=== PATIENT | male | born 1960 | race Caucasian/White ===

== ENCOUNTER 2017-06-27 09:27 | Observation (INO) | payer BC, OTHER ==
[2017-06-27 09:41] VITALS: BMI 28.6
--- NOTE | 2017-06-27 09:48 | PDOC ---
History of Present Illness - General History Source: Patient, Family Exam Limitations: No Limitations - History of Present Illness Initial Comments: 06/27/17 16:59 The patient is a 56 year old male, with a significant past medical history of hypertension and prostate cancer, clean cardiac cath >10yrs ago by report at [facility] who presents to the ED complaining of two episodes of chest pain that occurred with strenuous lifting approx. 7 days ago and 3 days ago as well as nightly chest pain that has been occurring for months while lying down at night. 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 The patient reports that the second episode of chest pain occurred 3 days ago on when he was doing heavy lifting at the [employer] and lasted for a few minutes before going away. The patient reports associated symptoms of nausea without vomiting secondary to the chest pain. The patient states he is normally short of breath but does not associate the shortness of breath with the chest pain. The patient reports that he has also been experiencing chest pain that occurs while lying down on his side at night for the past couple of months. He denies double or blurry vision. He denies recent swelling or calf tenderness. He denies palpitations or diaphoresis. He denies any recent fevers, chills, headache or dizziness. He denies any recent vomit, diarrhea or constipation. He denies any recent dysuria, frequency, urgency or hematuria. Denies recent travel or immobility. Allergies: NKA Past surgical history: Seed implantation. Social History: Former smoked (1992) Primary Care Physician: Dr. Dae Wolfe <Elder Cotto - Last Filed: 06/27/17 16:59> <Chuck Thomas - Last Filed: 06/27/17 17:18> - General Chief Complaint: Chest Pain Stated Complaint: CHEST PAIN Time Seen by Provider: 06/27/17 09:48 Past History <Elder Cotto - Last Filed: 06/27/17 16:59> - Past Medical History Cancer: Yes (PROSTATE) CVA: No COPD: No HTN: Yes - Immunization History Immunization Up to Date: Yes - Suicide/Smoking/Psychosocial Hx Smoking Status: No Smoking History: Never smoked Have you smoked in the past 12 months: No Number of Cigarettes Smoked Daily: 0 Hx Alcohol Use: No Drug/Substance Use Hx: No Substance Use Type: None <Chuck Thomas - Last Filed: 06/27/17 17:18> - Past Medical History Allergies/Adverse Reactions: Allergies Allergy/AdvReac Type Severity Reaction Status Date / Time No Known Allergies Allergy Verified 06/27/17 09:37 Home Medications: Ambulatory Orders Aspirin [ASA -] 81 mg PO DAILY 07/30/12 Amlodipine Besylate/Benazepril [Lotrel 10-40 mg Capsule] 1 each PO DAILY Hydrochlorothiazide [Hctz -] 25 mg PO DAILY 05/16/13 Benzonatate [Tessalon Pearls -] 200 mg PO QID 06/20/16 Cefixime [Suprax -] 400 mg PO DAILY 06/20/16 Ibuprofen [Motrin -] 600 mg PO QID PRN 06/20/16 Levofloxacin [Levaquin] 500 mg PO DAILY #7 tablet 06/20/16 Review of Systems - Review of Systems Comments:: 06/27/17 16:59 GENERAL/CONSTITUTIONAL: No fever or chills. No weakness. HEAD, EYES, EARS, NOSE AND THROAT: No change in vision. No ear pain or discharge. No sore throat. CARDIOVASCULAR: +Chest pain. No shortness of breath. RESPIRATORY: No cough, wheezing, or hemoptysis. GASTROINTESTINAL: +Nausea. No vomiting, diarrhea or constipation. GENITOURINARY: No dysuria, frequency, or change in urination. MUSCULOSKELETAL: No joint or muscle swelling or pain. No neck or back pain. SKIN: No rash NEUROLOGIC: No headache, vertigo, loss of consciousness, or change in strength/ sensation. ENDOCRINE: No increased thirst. No abnormal weight change. HEMATOLOGIC/LYMPHATIC: No anemia, easy bleeding, or history of blood clots. ALLERGIC/IMMUNOLOGIC: No hives or skin allergy. <Elder Cotto - Last Filed: 06/27/17 16:59> *Physical Exam - Vital Signs Last Vital Signs Temp Pulse Resp BP Pulse Ox 98.1 F 74 16 142/95 98 06/27/17 09:37 06/27/17 09:37 06/27/17 09:37 06/27/17 09:37 06/27/17 09:48 - Physical Exam Comments: 06/27/17 17:00 GENERAL: Awake, alert, and fully oriented, in no acute distress HEAD: No signs of trauma EYES: PERRLA, EOMI, sclera anicteric, conjunctiva clear ENT: Auricles normal inspection, hearing grossly normal, nares patent, oropharynx clear without exudates. Moist mucosa NECK: Normal ROM, supple, no lymphadenopathy, JVD, or masses LUNGS: Breath sounds equal, clear to auscultation bilaterally. No wheezes, and no crackles HEART: Regular rate and rhythm, normal S1 and S2, no murmurs, rubs or gallops ABDOMEN: Soft, nontender, normoactive bowel sounds. No guarding, no rebound. No masses EXTREMITIES: Normal range of motion, no edema. No clubbing or cyanosis. No cords, erythema, or tenderness NEUROLOGICAL: Normal speech, cranial nerves intact, negative pronator drift, 5/ 5 strength in all 4 extremities, normal sensation to light touch in all 4 extremities, normal cerebellar exam, normal gait, normal reflexes and tone SKIN: Warm, Dry, normal turgor, no rashes or lesions noted. <Elder Cotto - Last Filed: 06/27/17 16:59> - Vital Signs Last Vital Signs Temp Pulse Resp BP Pulse Ox 98.1 F 74 16 142/95 98 06/27/17 09:37 06/27/17 09:37 06/27/17 09:37 06/27/17 09:37 06/27/17 09:37 <Chuck Thomas - Last Filed: 06/27/17 17:18> Heart Score/ECG Review #1 06/27/17 17:18 EKG read and interpreted by me: NSR, rate 71, normal axis and intervals, no QUYEN , isolated TWI in lead III <Chuck Thomas - Last Filed: 06/27/17 17:18> ED Treatment Course - LABORATORY CBC & Chemistry Diagram: 06/27/17 10:37 06/27/17 10:37 - ADDITIONAL ORDERS Additional order review: Laboratory Results 06/27/17 06/27/17 10:37 10:37 PT with INR 12.00 H INR 1.06 Sodium 138 Potassium 4.7 Chloride 103 Carbon Dioxide 29 Anion Gap 6 L BUN 17 Creatinine 1.2 Creat Clearance w eGFR > 60 Random Glucose 123 H D Calcium 9.0 Total Bilirubin 0.9 D AST 18 ALT 36 Alkaline Phosphatase 77 D Creatine Kinase 166 Creatine Kinase Index 0.6 CK-MB (CK-2) < 1.000 Troponin I < 0.02 Total Protein 7.6 Albumin 4.0 06/27/17 10:37 RBC 5.05 MCV 89.8 MCHC 33.7 RDW 13.5 MPV 8.6 D Neutrophils % 65.6 Lymphocytes % 20.8 D Monocytes % 9.9 Eosinophils % 3.0 Basophils % 0.7 - RADIOLOGY Radiograph Interpretation: 06/27/17 12:49 EXAM#: TYPE/EXAM: RESULT: [id number] RAD/CHEST X-RAY PORTABLE* AP portable chest: Shortness of breath An apical lordotic view reveals a slight rotation to the right, degenerative changes, clear lungs, prominent mediastinum and sharp angles. An acute process is not seen. Since , there is no change of an adverse nature. Impression: No acute pathology. If symptoms persist, further imaging with CT may be of help. Reported By: Marcelino Palmer MD 06/27/17 15:40 EXAM#: TYPE/EXAM: RESULT: [id number] CT/ABDOMEN CTA W/WO CONTRAST [id number] CT/CHEST CTA HISTORY PROVIDED: Rule out dissection. TECHNIQUE: Sequential axial images were obtained from the thoracic inlet through the domes of the diaphragm both prior to and following the administration of intravenous contrast material. CTA protocol of the aorta was utilized, including coronal and sagittal MIP images. The thoracic and abdominal aorta are normal in position and caliber with no evidence of aneurysmal dilatation or dissection. The lung rincon are free of pulmonary masses, areas of acute consolidation or pleural effusions. No mediastinal masses, fluid collections or lymphadenopathy are identified. The heart is not enlarged. The liver is normal in size. It is hypodense in texture consistent with diffuse fatty infiltration. No mass lesions are identified within the liver. The spleen, pancreas, adrenal glands and kidneys demonstrate no significant abnormalities. There is a large left renal cyst measuring 6.2 x 4.7 cm. The gallbladder is largely contracted without evidence of calculi. There is no evidence of intra-abdominal or retroperitoneal lymphadenopathy or fluid collections. There is no evidence of acute bony pathology. IMPRESSION: 1. No evidence of thoracic or abdominal aortic aneurysm or dissection. 2. No acute pathology within the chest. 2. Diffuse fatty infiltration of the liver, no acute pathology within the abdomen. Please see above discussion. Reported By: Sergio Akers MD <Elder Cotto - Last Filed: 06/27/17 16:59> - LABORATORY CBC & Chemistry Diagram: 06/27/17 10:37 06/27/17 10:37 <Chuck Thomas - Last Filed: 06/27/17 17:18> Medical Decision Making - Medical Decision Making 06/27/17 14:[address] Dae Wolfe at 1:[address] pm. Answering service advised Dr. Singh is the covering physician and will return the page. Awaiting call back. Second page sent to Dr. Singh at 1:[address] Singh returned the second page at 2:03 pm. <Elder Cotto - Last Filed: 06/27/17 16:59> *DC/Admit/Observation/Transfer - Attestations Scribe Attestion: 06/27/17 14:37 Documentation prepared by Elder Cotto, acting as ophthalmic medical technologist for Chuck Thomas MD. <Elder Cotto - Last Filed: 06/27/17 16:59> - Discharge Dispostion Admit: Yes - Attestations Physician Attestion: 06/27/17 14:06 I, Dr. Chuck Thomas MD, attest that this document has been prepared under my direction and personally reviewed by me in its entirety. I further attest, that it accurately reflects all work, treatment, procedures and medical decision -making performed by me. <Chuck Thomas - Last Filed: 06/27/17 17:18> Diagnosis at time of Disposition: Chest pain - Discharge Dispostion Condition at time of disposition: Stable
[2017-06-27 10:46] LABS: BASOPHIL 0.7 % (0-2.0); MCH 30.2 pg (25.7-33.7); MCHC 33.7 g/dl (32.0-35.9); MEAN CELL VOLUME 89.8 fl (80-96); MEAN PLT VOLUME 8.6 fl (7.5-11.1); NEUTROPHILS 65.6 % (42.8-82.8); PLATELET COUNT 175 K/MM3 (134-434); RDW 13.5 % (11.9-15.9); WHITE BLOOD COUNT 6.6 K/mm3 (4.0-10.0)
[2017-06-27 10:58] LABS: INR 1.06 (0.82-1.09)
[2017-06-27 11:31] LABS: ALK PHOS 77 U/L (45-117); ANION GAP 6 (8-16); BILIRUBIN,TOTAL 0.9 mg/dL (0.2-1.0); CO2 29 mmol/L (21-32); CREATININE 1.2 mg/dL (0.7-1.3); GLUCOSE,RANDOM 123 mg/dL (74-106); SGOT/AST 18 U/L (15-37); SGPT/ALT 36 U/L (12-78); TOT PROT 7.6 g/dl (6.4-8.2)
[2017-06-27 11:33] LABS: CPK 166 IU/L (39-308); TROPONIN I < 0.02 ng/ml (0.00-0.05)
[2017-06-27] MEDS ORDERED: ACETAMINOPHEN 325 MG TABLET (FP) PO PRN (18:49)
[2017-06-27] MEDS ORDERED: ATORVASTATIN CA 40 MG TABLET (FP) PO SCH (22:00)
[2017-06-27] MEDS ORDERED: ATORVASTATIN CA 40 MG TABLET (FP) ONE (22:17)
[2017-06-27] MEDS ORDERED: HEPARIN NA (PORCINE) 5,000 UNITS/ML 1ML VIAL ONE (22:18)
[2017-06-27] MEDS: HEPARIN NA (PORCINE) 5,000 UNITS/ML 1ML VIAL SQ SCH (22:31)
[2017-06-27 23:27] LABS: CPK 137 IU/L (39-308); TROPONIN I < 0.02 ng/ml (0.00-0.05)
[2017-06-28 06:48] LABS: BASOPHIL 0.4 % (0-2.0); EOSINOPHIL 3.2 % (0-4.5); MCH 30.3 pg (25.7-33.7); MCHC 34.1 g/dl (32.0-35.9); MEAN PLT VOLUME 8.2 fl (7.5-11.1); NEUTROPHILS 66.5 % (42.8-82.8); PLATELET COUNT 164 K/MM3 (134-434); RDW 13.4 % (11.9-15.9); WHITE BLOOD COUNT 6.7 K/mm3 (4.0-10.0)
[2017-06-28 07:11] LABS: ALBUMIN 3.5 g/dl (3.4-5.0); ANION GAP 6 (8-16); CALCIUM 8.1 mg/dL (8.5-10.1); CHOLESTEROL 204 mg/dL (50-200); CO2 31 mmol/L (21-32); GLUCOSE,RANDOM 142 mg/dL (74-106); SGOT/AST 15 U/L (15-37)
[2017-06-28 07:14] LABS: ALK PHOS 69 U/L (45-117); CPK 123 IU/L (39-308); CREATININE 1.2 mg/dL (0.7-1.3); SGPT/ALT 29 U/L (12-78); TOT PROT 6.5 g/dl (6.4-8.2); TROPONIN I < 0.02 ng/ml (0.00-0.05)
[2017-06-28] MEDS: HEPARIN NA (PORCINE) 5,000 UNITS/ML 1ML VIAL SQ SCH (09:08)
[2017-06-28] MEDS ORDERED: LISINOPRIL 20 MG TABLET (FP) PO SCH (10:00)
[2017-06-28] MEDS ORDERED: ASPIRIN 81 MG CHEWABLE TABLETS PO SCH (10:00)
[2017-06-28] MEDS ORDERED: HYDROCHLOROTHIAZIDE 25 MG TABLET (FP) PO SCH (10:00)
[2017-06-28] MEDS ORDERED: amLODIPine BESYLATE 10 MG TABLET (FP) PO SCH (10:00)
--- NOTE | 2017-06-28 14:19 | EKG ---
Test Reason : Blood Pressure : / mmHG Vent. Rate : 071 BPM Atrial Rate : 071 BPM P-R Int : 152 ms QRS Dur : 102 ms QT Int : 370 ms P-R-T Axes : 057 -10 011 degrees QTc Int : 402 ms NORMAL SINUS RHYTHM NORMAL ECG WHEN COMPARED WITH ECG OF 20-JUN-2016 10:00, LIKELY NO SIGNIFICANT CHANGES Confirmed by PATRIA LEYVA MD ([id number]) on 06/28/2017 2:18:40 PM Referred By: Confirmed By:PATRIA LEYVA MD
[2017-06-28 14:54] VITALS: BP 134/77; PULSE 76; TEMP 98.2
--- NOTE | 2017-06-28 15:21 | CON.CARD ---
Consult Consult Specialty:: Cardiology Referred by:: Dr Wolfe Reason for Consultation:: chest pain - History of Present Illness Chief Complaint: chest pain History of Present Illness: 56 year old man history of HTN chol prostate CA s/p seed implant, ex smoker, cp in past with normal cors cath at [facility] 10 years ago, admitted with chest pain brief and nonexertional pinching x 2 episodes 3 days ago. No associated sob, palps, orthopnea, pnd or edema. Exercise tolerance is good. - History Source History Provided By: Patient - Alcohol/Substance Use Hx Alcohol Use: No - Smoking History Smoking history: Never smoked Have you smoked in the past 12 months: No Aproximately how many cigarettes per day: 0 Home Medications - Allergies Allergies/Adverse Reactions: Allergies Allergy/AdvReac Type Severity Reaction Status Date / Time No Known Allergies Allergy Verified 06/27/17 09:37 - Home Medications Home Medications: Ambulatory Orders Aspirin [ASA -] 81 mg PO DAILY 07/30/12 Amlodipine Besylate/Benazepril [Lotrel 10-40 mg Capsule] 1 each PO DAILY Hydrochlorothiazide [Hctz -] 25 mg PO DAILY 05/16/13 Family Disease History - Family Disease History Family History: Denies Review of Systems - Review of Systems Constitutional: reports: No Symptoms Eyes: reports: No Symptoms HENT: reports: No Symptoms Neck: reports: No Symptoms Respiratory: reports: No Symptoms Gastrointestinal: reports: No Symptoms Vital Signs: Vital Signs Temperature 98.2 F 06/28/17 14:54 Pulse Rate 76 06/28/17 14:54 Respiratory Rate 18 06/28/17 14:54 Blood Pressure 134/77 06/28/17 14:54 O2 Sat by Pulse Oximetry (%) 100 06/28/17 14:54 Constitutional: Yes: Well Nourished, No Distress Eyes: Yes: Conjunctiva Clear, EOM Intact HENT: Yes: Atraumatic, Normocephalic Neck: Yes: Supple, Trachea Midline Respiratory: Yes: CTA Bilaterally Gastrointestinal: Yes: Normal Bowel Sounds, Soft Cardiovascular: Yes: WNL, Regular Rate and Rhythm JVD: No Carotid Bruit: No PMI: Non-Displaced Heart Sounds: Yes: S1, S2 Edema: No Peripheral Pulses WNL: Yes - Other Data Labs, Other Data: CBC, BMP 06/28/17 06:00 06/28/17 06:00 INR, PTT INR 1.06 (0.82-1.09) 06/27/17 10:37 Troponin, BNP 06/27/17 06/28/17 22:40 06:00 Troponin I < 0.02 < 0.02 Troponin, BNP 06/27/17 06/28/17 22:40 06:00 Troponin I < 0.02 < 0.02 Imaging - Results Chest X-ray: Report Reviewed (vijaya) EKG: Report Reviewed (normal ecg) Other: Other (normal nuclear stress test. EF 58%) Problem List - Problems (1) Chest pain Assessment/Plan: His chest pain is atypical for angina. Normal echo and stress test, no evidence of ACS. normal ECG. stable to pr home. fu with primary MD. Code(s): R07.9 - CHEST PAIN, UNSPECIFIED Qualifiers: Chest pain type: intercostal pain Qualified Code(s): R07.82 - Intercostal pain
== END 2017-06-28 15:25 | disposition home or self-care (01) ==
LOC: JER 09:27 → JERBED 14:07
PROVIDERS: ADMIT Family Medicine; ATTEND Family Medicine
PROC: 3E013GC Introduction of Other Therapeutic Substance into Subcutaneous Tissue, Percutaneous Approach (ICD-10-PCS; principal; 2017-06-27)
DX: R07.82 Intercostal pain (principal); I10 Essential (primary) hypertension; Z85.46 Personal history of malignant neoplasm of prostate
CPT/HCPCS: 36415; 71010-TC; 71275-TC; 74175-TC; 78452-TC; 80053; 80061; 82550; 82553; 83036; 83721; 84484; 85025; 85610; 93005; 93010; 93017; 93306-TC; 99285-25; A9502; G0378; J1644

== ENCOUNTER 2018-09-21 08:32 | Emergency (ER) | payer BC ==
[2018-09-21 08:47] VITALS: TEMP 98.8; BMI 27.6
[2018-09-21] MEDS ORDERED: ACETAMINOPHEN 1000 MG/100 ML VIAL (NON FORMULARY) IVPB ONE (09:30)
[2018-09-21] MEDS ORDERED: ACETAMINOPHEN INJECTION 100 ML IVPB ONE (09:33)
--- NOTE | 2018-09-21 09:33 | PDOC ---
History of Present Illness - General Chief Complaint: Blood Pressure Problem Stated Complaint: BP PROBLEM Time Seen by Provider: 09/21/18 09:18 - History of Present Illness Initial Comments: 09/21/18 09:42 The patient is a 57 year old male, with a significant PMH of HTN, prostate cancer, and chronic back pain, who presents to the emergency department with high blood pressure and headache that began this morning. Pt states that he first noticed his BP was elevated yesterday, measuring it to be 190 systolic. He notes that his baseline is usually around 130-160 systolic. However, he was switched off of his usual BP medication (amlodipine-benazepril) to another pill a month ago. When he found his BP to be elevated yesterday, his PMD Dr. Wolfe switched him back to the amlodipine benazepril combo pill, which he took yesterday and this morning. However, pt notes that today he began to have a headache with some associated photophobia. Denies thunderclap. Denies worst headache of life. He took his BP again and found it to be persistently elevated to 190 systolic. Pt denies any CP/SOB though he notes he had a small transient pinch yesterday that has since resolved. Pt denies weakness/numbness in any extremity, denies dizziness. Denies fever, chills, nausea, vomit, diarrhea and constipation. Denies dysuria, frequency, urgency and hematuria. Allergies: NKA Social history: Former smoker - quit 1990 PCP: Dr. Wolfe Past History - Past Medical History Allergies/Adverse Reactions: Allergies Allergy/AdvReac Type Severity Reaction Status Date / Time No Known Allergies Allergy Verified 09/21/18 08:44 Home Medications: Ambulatory Orders Aspirin [ASA -] 81 mg PO DAILY 07/30/12 Amlodipine Besylate/Benazepril [Lotrel 10-40 mg Capsule] 1 each PO DAILY Hydrochlorothiazide [Hctz -] 12.5 mg PO DAILY 05/16/13 Anemia: No Asthma: No Cancer: Yes (PROSTATE) Cardiac Disorders: No CVA: No COPD: No CHF: No Dementia: No Diabetes: No GI Disorders: Yes (COLON POLYP) Disorders: Yes (PROSTATE CANCER) HTN: Yes Hypercholesterolemia: No Liver Disease: Yes (GILBERT'S SYNDROME) Seizures: No Thyroid Disease: No - Immunization History Immunization Up to Date: Yes - Suicide/Smoking/Psychosocial Hx Smoking Status: No Smoking History: Former smoker Have you smoked in the past 12 months: No Number of Cigarettes Smoked Daily: 0 If you are a former smoker, when did you quit?: 1991 Information on smoking cessation initiated: No Hx Alcohol Use: Yes Drug/Substance Use Hx: No Substance Use Type: None Hx Substance Use Treatment: No Review of Systems - Review of Systems Comments:: 09/21/18 09:47 "GENERAL/CONSTITUTIONAL: No fever or chills. No weakness. HEAD, EYES, EARS, NOSE AND THROAT: (+) headache. (+) photophobia. No change in vision. No ear pain or discharge. No sore throat. CARDIOVASCULAR: No chest pain, no shortness of breath, no loss of consciousness RESPIRATORY: No cough, wheezing, or hemoptysis. GASTROINTESTINAL: No nausea, vomiting, diarrhea or constipation. GENITOURINARY: No dysuria, frequency, or change in urination. MUSCULOSKELETAL: No joint or muscle swelling or pain. No neck or back pain. SKIN: No rash NEUROLOGIC: No vertigo, no change in strength/sensation. ENDOCRINE: No increased thirst. No abnormal weight change. HEMATOLOGIC/LYMPHATIC: No anemia, easy bleeding, or history of blood clots. ALLERGIC/IMMUNOLOGIC: No hives or skin allergy. *Physical Exam - Vital Signs Last Vital Signs Temp Pulse Resp BP Pulse Ox 98.8 F 85 18 176/98 H 97 09/21/18 08:45 09/21/18 08:45 09/21/18 08:45 09/21/18 08:45 09/21/18 08:45 - Physical Exam Comments: 09/21/18 09:33 "GENERAL: Awake, alert, and fully oriented, in no acute distress. HEAD: No signs of trauma EYES: PERRLA, EOMI, sclera anicteric, conjunctiva clear ENT: Auricles normal inspection, hearing grossly normal, nares patent, oropharynx clear without exudates. Moist mucosa NECK: Nontender, no stepoffs, Normal ROM, supple, no lymphadenopathy, JVD, or masses LUNGS: Breath sounds equal, clear to auscultation bilaterally. No wheezes, and no crackles HEART: Regular rate and rhythm, normal S1 and S2, no murmurs, rubs or gallops ABDOMEN: Soft, nontender, normoactive bowel sounds. No guarding, no rebound. No masses EXTREMITIES: Normal range of motion, no edema. No clubbing or cyanosis. No cords, erythema, or tenderness NEUROLOGICAL: Cranial nerves II through XII intact. 5/5 strength and sensation in all extremities, Normal speech, normal gait, normal cerebellar function SKIN: Warm, Dry, normal turgor, no rashes or lesions noted. Moderate Sedation - Procedure Monitoring Vital Signs: Procedure Monitoring Vital Signs Temperature 98.8 F 09/21/18 08:45 Pulse Rate 85 09/21/18 08:45 Respiratory Rate 18 09/21/18 08:45 Blood Pressure 176/98 H 09/21/18 08:45 O2 Sat by Pulse Oximetry (%) 97 09/21/18 08:45 Heart Score/ECG Review - History History: Slightly suspicious - Electrocardiogram EKG: Non specific repolarization disturbance - Age Age: 45-65 - Risk Factors Risk Factors Heart Score: Yes Hx Hypertension Based on the list above the patient has:: 1-2 risk factors - Troponin Troponin: </= normal limit - Score Heart Score - Total: 3 - ECG Impressions Comment:: 09/21/18 09:48 NSR, no QUYEN/STDs, TWI in inferior leads, L axis deviation, intervals wnl, rate 70 ED Treatment Course - LABORATORY CBC & Chemistry Diagram: 09/21/18 09:41 09/21/18 09:41 - RADIOLOGY Radiology Studies Ordered: Category Date Time Status HEAD CT WITHOUT CONTRAST [CT] Stat CT Scan 09/21/18 09:29 Ordered Medical Decision Making - Medical Decision Making 09/21/18 09:31 57 M here with elevated BP and headache. Pt with normal neuro exam. Low suspicion for ICH or other intracranial process but will obtain head CT given headache. Will also send labs to r/o end-organ damage given transient episode of chest pain. - Labs - EKG - CT head 09/21/18 10:[address] unremarkable 09/21/18 10:40 Repeat BP 154/93 without intervention Pt is well appearing, with normal vitals. Clinically stable for DC at this time. I discussed the physical exam findings, ancillary test results and final diagnoses with the patient. I answered all of the patient's questions. The patient was satisfied with the care received and felt comfortable with the discharge plan and treatment plan. The patient agrees to follow up with the primary care physician within 24-72 hours. *DC/Admit/Observation/Transfer Diagnosis at time of Disposition: Elevated blood pressure reading - Referrals - Patient Instructions Printed Discharge Instructions: DI for High Blood Pressure Additional Instructions: Continue taking your blood pressure medications as prescribed. Your blood pressure was slightly elevated today but returned to normal on its own. Follow up with Dr. Wolfe TODAY to discuss further management of your blood pressure. Uncontrolled blood pressure can eventually lead to kidney disease, heart disease , other serious illness, disability, or even . If you experience severe headache, nausea, vomiting, chest pain, shortness of breath, or any other concerning symptoms, return to the ER immediately. - Post Discharge Activity Forms/Work/School Notes: Back to Work - Attestations Physician Attestion: 09/21/18 10:37 I, Dr. Roland Johnson MD, attest that this document has been prepared under my direction and personally reviewed by me in its entirety. I further attest, that it accurately reflects all work, treatment, procedures and medical decision -making performed by me.
[2018-09-21 10:04] LABS: BASO % 0.6 % (0-2.0); EOS % 2.6 % (0-4.5); HEMATOCRIT 44.3 % (35.4-49); HEMOGLOBIN 15.4 GM/dL (11.7-16.9); LYMPH % 21.1 % (8-40); MCH 31.4 pg (25.7-33.7); MCHC 34.7 g/dl (32.0-35.9); MEAN CELL VOLUME 90.6 fl (80-96); MEAN PLT VOLUME 8.5 fl (7.5-11.1); NEUT % 64.7 % (42.8-82.8); PLATELET COUNT 148 K/MM3 (134-434); WHITE BLOOD COUNT 4.9 K/mm3 (4.0-10.0)
[2018-09-21 10:26] LABS: ALBUMIN 4.2 g/dl (3.4-5.0); ALK PHOS 76 U/L (45-117); ANION GAP 5 MMOL/L (8-16); BLOOD UREA NITROGEN 17 mg/dL (7-18); CALCIUM 8.8 mg/dL (8.5-10.1); CHLORIDE 104 mmol/L (98-107); CO2 29 mmol/L (21-32); CREATININE 1.2 mg/dL (0.55-1.3); GLUCOSE,RANDOM 111 mg/dL (74-106); POTASSIUM 4.3 mmol/L (3.5-5.1); SGOT/AST 19 U/L (15-37); SGPT/ALT 24 U/L (13-61); SODIUM 139 mmol/L (136-145); TOT PROT 7.6 g/dl (6.4-8.2)
[2018-09-21 10:40] VITALS: BP 154/93; PULSE 75
--- NOTE | 2018-09-22 02:34 | EKG ---
Test Reason : Blood Pressure : / mmHG Vent. Rate : 070 BPM Atrial Rate : 070 BPM P-R Int : 160 ms QRS Dur : 100 ms QT Int : 368 ms P-R-T Axes : 060 -36 -19 degrees QTc Int : 397 ms NORMAL SINUS RHYTHM LEFT AXIS DEVIATION ABNORMAL ECG WHEN COMPARED WITH ECG OF 27-JUN-2017 09:33, NO SIGNIFICANT CHANGE WAS FOUND Confirmed by BALAJI CHRISTIANSON MD ([id number]) on 09/22/2018 2:33:58 AM Referred By: Confirmed By:BALAJI CHRISTIANSON MD
== END 2018-09-21 10:21 | disposition home or self-care (01) ==
LOC: JER 08:32
PROC: 3E033NZ Introduction of Analgesics, Hypnotics, Sedatives into Peripheral Vein, Percutaneous Approach (ICD-10-PCS; principal; 2018-09-21)
DX: Z01.31 Encounter for examination of blood pressure with abnormal findings (principal); I10 Essential (primary) hypertension
CPT/HCPCS: 36415; 70450-TC; 80053; 82550; 82553; 84484; 85025; 93005; 93010; 99283-25; J0131

== ENCOUNTER 2020-02-21 09:45 | Emergency (ER) | payer BC, OTHER ==
--- NOTE | 2020-02-21 09:51 | PDOC ---
Rapid Medical Evaluation Medical Evaluation: Allergies Allergy/AdvReac Type Severity Reaction Status Date / Time No Known Allergies Allergy Verified 09/21/18 08:44 02/21/20 09:48 59 yo M h/o HTN, borderline DM c/o R foot pain s/p twisting injury today. rolled ankle while pushing a hand truck. did not take any pain medication. VSS using crutches, not bearing weight on R foot R foot and ankle swelling noted A/P: R foot injury R foot and R ankle xrays toradol 30 mg im ft
[2020-02-21 09:52] VITALS: BP 151/85; PULSE 92; TEMP 98.8; BMI 25.5
[2020-02-21] MEDS ORDERED: KETOROLAC TROMETHAMINE 30 MG/1 ML VIAL IM ONE (09:52)
[2020-02-21] MEDS ORDERED: KETOROLAC TROMETHAMINE 30 MG/1 ML VIAL ONE (10:40)
--- NOTE | 2020-02-21 10:57 | PDOC ---
History of Present Illness - General Chief Complaint: Injury Stated Complaint: RT FOOT INJURY Time Seen by Provider: 02/21/20 09:52 History Source: Patient - History of Present Illness Occurred: reports: this morning Severity: Yes: moderate Lower Extremity Pain Location: right: ankle Method of Injury: Yes: other Past History - Medical History Allergies/Adverse Reactions: Allergies Allergy/AdvReac Type Severity Reaction Status Date / Time No Known Allergies Allergy Verified 02/21/20 09:52 Home Medications: Ambulatory Orders Aspirin [ASA -] 81 mg PO DAILY 07/30/12 Amlodipine Besylate/Benazepril [Lotrel 10-40 mg Capsule] 1 each PO DAILY 05/16/13 Hydrochlorothiazide [Hctz -] 12.5 mg PO DAILY 05/16/13 Anemia: No Asthma: No Cancer: Yes (PROSTATE) Cardiac Disorders: No CVA: No COPD: No CHF: No Dementia: No Diabetes: No GI Disorders: Yes (COLON POLYP) Disorders: Yes (PROSTATE CANCER) HTN: Yes Hypercholesterolemia: No Liver Disease: Yes (GILBERT'S SYNDROME) Seizures: No Thyroid Disease: No - Immunization History Immunization Up to Date: Yes - Psycho-Social/Smoking History Smoking Status: No Smoking History: Never smoked Have you smoked in the past 12 months: No Number of Cigarettes Smoked Daily: 0 If you are a former smoker, when did you quit?: 1991 Information on smoking cessation initiated: Yes - Substance Abuse Hx (Audit-C & DAST Scrn) How often the patient has a drink containing alcohol: Never Score: In Men: 4 or > Positive; In Women: 3 or > Positive: 0 Screen Result (Pos requires Nsg. Audit-10AR): Negative In the last yr the pt used illegal drug/Rx for NonMed reason: No Score: Yes response is considered Positive: 0 Screen Result (Positive result requires Nsg. DAST-10): Negative Review of Systems - Review of Systems Musculoskeletal: Yes: Joint Pain, Joint Swelling *Physical Exam - Vital Signs Last Vital Signs Temp Pulse Resp BP Pulse Ox 98.8 F 92 H 19 151/85 98 02/21/20 09:50 02/21/20 09:50 02/21/20 09:50 02/21/20 09:50 02/21/20 09:50 - Physical Exam General Appearance: Yes: Appropriately Dressed. No: Apparent Distress HEENT: positive: Normal Voice Neck: positive: Supple Respiratory/Chest: negative: Respiratory Distress Extremity: positive: Tender (to anterior R ankle w/ minimal swelling) Integumentary: positive: Dry, Warm Neurologic: positive: Fully Oriented, Alert, Normal Mood/Affect Medical Decision Making - Medical Decision Making 02/21/20 10:41 59 yo M, no sig hx, here w/ R ankle pain. pt states while moving furniture at work this am, he might have ? hyperextended R ankle but no direct blow or fall. Now using his own crutches see exam R ankle sprain XR neg MELISSA placed Pain control in ED Dc w/ RICE and ortho f/u as needed 02/21/20 11:00 Discharge - Discharge Information Problems reviewed: Yes Clinical Impression/Diagnosis: Ankle sprain Qualifiers: Encounter type: initial encounter Involved ligament of ankle: unspecified ligament Laterality: right Qualified Code(s): S93.401A - Sprain of unspecified ligament of right ankle, initial encounter Condition: Good Disposition: HOME - Follow up/Referral Referrals: Trevon Conner MD [Staff Physician] - - Patient Discharge Instructions Patient Printed Discharge Instructions: DI for Ankle Sprain Additional Instructions: Take medications, use melissa, elevate and ice area of swelling If pain persist after 2 weeks, follow up with Dr Conner of orthopedics - Post Discharge Activity
== END 2020-02-21 11:03 | disposition home or self-care (01) ==
LOC: JERFT 09:45
PROC: 3E0233Z Introduction of Anti-inflammatory into Muscle, Percutaneous Approach (ICD-10-PCS; principal; 2020-02-21)
DX: S93.401A Sprain of unspecified ligament of right ankle, initial encounter (principal)
CPT/HCPCS: 73610-TC-RT-FY; 73630-TC-RT-FY; 99284-25

== ENCOUNTER 2023-10-22 11:05 | Emergency (ER) | payer BC ==
[2023-10-22 11:11] VITALS: BMI 27.4
[2023-10-22] MEDS ORDERED: ACETAMINOPHEN INJECTION 100 ML IVPB ONE (12:14)
[2023-10-22] MEDS: ACETAMINOPHEN 1000 MG/100 ML BAG IVPB ONE (12:29)
[2023-10-22 12:32] LABS: BASO % 0.5 % (0-2.0); EOS % 2.2 % (0-4.5); HEMATOCRIT 43.6 % (35.4-49); HEMOGLOBIN 14.6 GM/dL (11.7-16.9); LYMPH % 23.8 % (8-40); MCH 30.1 pg (25.7-33.7); MCHC 33.6 g/dl (32.0-35.9); MEAN CELL VOLUME 89.7 fl (80-96); MEAN PLT VOLUME 8.2 fl (7.5-11.1); MONO % 10.3 % (3.8-10.2); NEUT % 63.2 % (42.8-82.8); PLATELET COUNT 179 10^3/uL (134-434); RBC 4.87 M/mm3 (4.00-5.60); RDW 13.3 % (11.9-15.9); WHITE BLOOD COUNT 5.8 K/mm3 (4.0-10.0)
[2023-10-22 12:58] LABS: POTASSIUM 4.6 mmol/L (3.5-5.1)
[2023-10-22 13:00] LABS: CALCIUM 9.2 mg/dL (8.5-10.1)
[2023-10-22 13:01] LABS: ALBUMIN 4.1 g/dl (3.4-5.0); BLOOD UREA NITROGEN 15.4 mg/dL (7-18)
[2023-10-22 13:04] LABS: CREATININE 1.2 mg/dL (0.55-1.3)
[2023-10-22 13:05] LABS: BILIRUBIN,TOTAL 1.1 mg/dL (0.2-1); TOT PROT 7.4 g/dl (6.4-8.2)
[2023-10-22 15:37] VITALS: BP 122/87; PULSE 76; RESP 19; TEMP 97.9
== END 2023-10-22 15:46 | disposition home or self-care (01) ==
LOC: JER 11:05
PROC: 3E033NZ Introduction of Analgesics, Hypnotics, Sedatives into Peripheral Vein, Percutaneous Approach (ICD-10-PCS; principal; 2023-10-22)
DX: K62.5 Hemorrhage of anus and rectum (principal); R10.32 Left lower quadrant pain; Z80.0 Family history of malignant neoplasm of digestive organs
CPT/HCPCS: 36415; 74177-TC; 80053; 82272; 85025; 86850; 86900; 86901; 99285-25; J0131; Q9967

== ENCOUNTER 2024-07-27 06:12 | Emergency (ER) | payer OTHER, BC ==
[2024-07-27 06:25] VITALS: RESP 18; TEMP 97.9; BMI 28.3
[2024-07-27 06:57] VITALS: BP 157/79; PULSE 74
[2024-07-27] MEDS ORDERED: LIDOCAINE VISCOUS 2% ORAL/TOP 15 ML UNIT-DOSE CUP ONE (09:11)
[2024-07-27] MEDS ORDERED: ACETAMINOPHEN INJECTION 100 ML ONE (09:11)
[2024-07-27] MEDS: SODIUM CHLORIDE 0.9% 500 ML INFUS.BAG IV ONE (09:36)
[2024-07-27] MEDS: ACETAMINOPHEN 1000 MG/100 ML BAG IVPB ONE (09:36)
[2024-07-27] MEDS: LIDOCAINE VISCOUS 2% ORAL/TOP 15 ML UNIT-DOSE CUP MM ONE (09:39)
[2024-07-27 09:41] LABS: BASO % 0.6 % (0-2.0); EOS % 3.9 % (0-4.5); HEMATOCRIT 46.3 % (35.4-49); HEMOGLOBIN 15.2 GM/dL (11.7-16.9); LYMPH % 20.8 % (8-40); MCH 29.6 pg (25.7-33.7); MCHC 32.8 g/dl (32.0-35.9); MEAN CELL VOLUME 90.1 fl (80-96); MEAN PLT VOLUME 7.9 fl (7.5-11.1); MONO % 12.8 % (3.8-10.2); NEUT % 61.9 % (42.8-82.8); PLATELET COUNT 166 10^3/uL (134-434); RBC 5.13 M/mm3 (4.00-5.60); RDW 13.6 % (11.9-15.9); WHITE BLOOD COUNT 5.3 K/mm3 (4.0-10.0)
[2024-07-27 10:01] LABS: POTASSIUM 4.3 mmol/L (3.5-5.1)
[2024-07-27 10:03] LABS: CALCIUM 8.9 mg/dL (8.5-10.1)
[2024-07-27 10:04] LABS: ALBUMIN 4.1 g/dl (3.4-5.0); BLOOD UREA NITROGEN 19.7 mg/dL (7-18); MAGNESIUM 2.2 mg/dL (1.8-2.4)
[2024-07-27 10:07] LABS: CREATININE 1.2 mg/dL (0.55-1.3)
[2024-07-27 10:09] LABS: BILIRUBIN,TOTAL 0.8 mg/dL (0.2-1); TOT PROT 7.5 g/dl (6.4-8.2)
[2024-07-27 13:15] LABS: HIV INTERPRETATION NEGATIVE (NEGATIVE)
== END 2024-07-27 10:56 | disposition home or self-care (01) ==
LOC: JER 06:12
PROC: 3E033NZ Introduction of Analgesics, Hypnotics, Sedatives into Peripheral Vein, Percutaneous Approach (ICD-10-PCS; principal; 2024-07-27)
DX: R05.9 Cough, unspecified (principal); R42 Dizziness and giddiness; R09.81 Nasal congestion; R07.89 Other chest pain; Z20.822 Contact with and (suspected) exposure to COVID-19
CPT/HCPCS: 0241U-QW; 36415; 71045-TC-FY; 80053; 83735; 84484; 85025; 86803; 87389; 93005; 93010; 99285-25; J0131